=== PATIENT | female | born 1965 | race Caucasian/White ===

== ENCOUNTER 2019-07-09 10:56 | Outpatient (CLI) | payer MEDICARE, SELFPAY ==
--- NOTE | 2019-07-09 11:14 | XR_ITS ---
WS: [id number] SI JOINTS TECHNIQUE: 3 views of the sacroiliac joints CLINICAL INFORMATION: low back pain, LUMBOSACRAL INTERVERTEDBRAL DISC DISORDER COMPARISON: None. FINDINGS: Mild degenerative arthritis both sacroiliac joints. No significant erosive changes. Mild sclerosis ab out the left sacroiliac joint consistent with sacroiliitis. Normal visualized lower lumbar spine. Partially visualized spinal stimulator. XR/XR sacroiliac [facility] 3V [id number] IMPRESSION: Mild degenerative arthritis both sacroiliac joints with mild left sacroiliitis. No erosive changes.
== END 2019-07-09 10:57 | disposition home or self-care (01) ==
LOC: RADWPI 11:05
PROVIDERS: Family Provider Internal Medicine; PCP Internal Medicine; Visit Provider Specialist
DX: M46.1 Sacroiliitis, not elsewhere classified (principal); M47.898 Other spondylosis, sacral and sacrococcygeal region; M51.9 Unspecified thoracic, thoracolumbar and lumbosacral intervertebral disc disorder; M54.5 Low back pain
CPT/HCPCS: 72202

== ENCOUNTER 2019-07-21 11:18 | Outpatient (CLI) | payer MEDICARE, SELFPAY ==
--- NOTE | 2019-07-21 11:21 | MM_ITS ---
WS: [id number] BILATERAL DIGITAL SCREENING MAMMOGRAPHY WITH CAD CLINICAL INFORMATION: SCREENING HISTORY: Screening mammogram. No current complaints. COMPARISON: TECHNIQUE: Bilateral CC and MLO views. FINDINGS: Scattered fibroglandular densities bilaterally. Again seen is the oval nodule upper inner quadrant ri ght breast measuring 1.4 cm slightly smaller today. This is previously shown to represent a cyst. No suspicious focal mass, asymmetry, calcifications, or architectural distortion. No evidence of maligna [place]cy. MM/[place] [id number] IMPRESSION: BI-RADS: 2-Benign FOLLOW UP: 1 Year Follow-up Recommend return to annual screening mammography.
== END 2019-07-21 11:19 | disposition home or self-care (01) ==
LOC: RADSHAW 11:18
PROVIDERS: Family Provider Internal Medicine; PCP Internal Medicine; Visit Provider Internal Medicine
DX: Z12.31 Encounter for screening mammogram for malignant neoplasm of breast (principal)
CPT/HCPCS: 77067

== ENCOUNTER → 2019-08-04 07:45 | Outpatient (BNVA) | payer MEDICARE, SELFPAY | PROVIDERS: Family Provider Internal Medicine; PCP Internal Medicine; Referring Provider Specialist; Visit Provider Psychiatry & Neurology Neurology | DX: M54.16 Radiculopathy, lumbar region (principal); M54.5 Low back pain; M79.604 Pain in right leg; M79.605 Pain in left leg; F17.210 Nicotine dependence, cigarettes, uncomplicated | CPT/HCPCS: 95886; 95908 ==

== ENCOUNTER → 2019-08-08 12:47 | Outpatient (BNVA) | payer MEDICARE, SELFPAY | PROVIDERS: Family Provider Internal Medicine; PCP Internal Medicine; Visit Provider Nurse Practitioner | DX: M54.9 Dorsalgia, unspecified (principal); F17.210 Nicotine dependence, cigarettes, uncomplicated; Z79.891 Long term (current) use of opiate analgesic; Z71.6 Tobacco abuse counseling | CPT/HCPCS: 99214 ==

== ENCOUNTER 2019-10-23 11:28 | Observation (INO) | payer MEDICARE, SELFPAY ==
[2019-10-22 14:21] VITALS: BMI 41.7
[2019-10-23 09:19] VITALS: BP 153/89; PULSE 77; RESP 18; TEMP 36.1; O2SAT 97
--- NOTE | 2019-10-23 09:39 | ANES.PREANE2 ---
Pre-Anesthetic Assessment Pre-Anesthetic Assessment: Height/Weight: Height 1.63 m Weight 110.223 kg Temp Pulse Resp BP Pulse Ox 97 F L 77 18 153/89 97 10/23/19 09:19 10/23/19 09:19 10/23/19 09:19 10/23/19 09:19 10/23/19 09:19 Proposed Procedure: Operation Date: 10/23/19 10:25 Proposed Procedures p Dorsal Column Stimulator Revision 22390 M51.16(Not Applicable) - Emory Macedo MD Was Beta Romeo taken within 24 hours: N/A Social: Social History: Tobacco Exam: Pre-Anes Outpt Exam: alert, oriented x 3, clear to auscultation bilaterally and regular rate & rhythm Airway: Submandibular: WNL Cervical ROM: WNL MP: 2 Dentition: False History/ROS: No significant history except as noted Pulmonary: Pulmonary: COPD CV/HEM: CV/HEM: HTN : : None reported Hepatic: Hepatic: None reported GI: GI: None reported Metabolic: Metabolic: None reported Musc/skel: Musc/skel: Lower Back Pain and OA/DJD Anesthetic Plan: ASA status: 3 Anesthesia: Anesthesia Evaluation and General Risk of > 500 ml blood loss (7ml/kg in children): No PFSH Anesthesia PFSH: Social History Smoking and tobacco status: current every day smoker cigarettes Packs smoked per day: 1 [ Other cigarette details: 1 pck and 1/2 ] Alcohol intake: current Alcohol intake frequency: holidays/special occasions only Alcohol type: wine Lives independently: Yes Household members: spouse Marital status: Current occupational status: disabled Current occupation: disabled History of recent travel: No Female Reproductive History: Date of last menstrual period: 10/31/00 Data Anesthesia Cardiac Studies: No Data to Display
[2019-10-23] MEDS: sodium chloride 0.9% 1,000 ML 30 ML IV (10:00)
--- NOTE | 2019-10-23 10:11 | W.PM.OPSUD ---
Surgery/Procedure H&P Update DATE OF PROCEDURE: October 23, 2019 DATE H&P PERFORMED: 10/21/19 H&P UPDATE INFORMATION: I have reviewed H&P completed within last 30 days and H&P is in [facility] EMR on date indicated PREOP DIAGNOSIS: Spinal stimulator dysfunction PRIMARY INDICATION FOR PROCEDURE: Pain PLANNED PROCEDURE: Operation Date: 10/23/19 10:25 Proposed Procedures Spinal Cord Stimulator Pulse generator replacement 03109 M51.16(Not Applicable) - Emory Macedo MD
--- NOTE | 2019-10-23 10:32 | PM.OP2 ---
 Brief Operative Note: Date of procedure: 10/23/19 Pre-op diagnosis: Spinal cord stimulator dysfunction Post-op diagnosis: same Procedure Done: Replacement of subcutaneous programmable pulse generator Surgeon: Emory Macedo Estimated blood loss (mL): 5 Complications: None Post-op Plan: Home per Ambulatory Surgery protocol. Condition: stable Disposition: PACU Coding Level of Care Code Acute Tour Bus Driver/Guide for Xuan Hamlin
[2019-10-23 11:32] VITALS: BP 116/81; PULSE 100; RESP 14; TEMP 36.6; O2SAT 100
[2019-10-23 11:35] VITALS: BP 110/81; PULSE 93; RESP 22; O2SAT 100
[2019-10-23 11:45] VITALS: BP 110/72; PULSE 81; RESP 14; TEMP 36.6; O2SAT 98
[2019-10-23 12:00] VITALS: BP 134/79; PULSE 73; RESP 18; TEMP 36.7; O2SAT 98
[2019-10-23 12:21] VITALS: BP 138/84; PULSE 74; RESP 18
--- NOTE | 2019-10-23 15:01 | P.OP_ITS ---
Operative Report Date of procedure: October 23, 2019 Pre-op Diagnosis: Spinal stimulator dysfunction Post-op diagnosis: same Procedure Done: Replacement of subcutaneous programmable pulse generator, with connection to intraspinal/epidural electrode arrays. Implants: [employer] Proclaim XR 5 pulse generator Specimens removed/disposition: [employer] Protege pulse generator Pathology: Pulse generator to pathology for gross exam only Surgeon: Emory Macedo Anesthesia: General Estimated blood loss (mL): 5 IV fluids (mL): 500 Complications: None Condition: stable Disposition: PACU Brief History: The patient is a 53-year-old female with chronic/intractable pain. She unde rwent a percutaneous trial of thoracic spinal cord stimulation, with marked improvement in chronic pain complaints obtained during the trial. She subsequently underwent thoracic laminotomy with placement of a paddle lead and a subcutaneous pulse generator (09/27/2013). She developed loss of efficacy of the device in 2014, related primarily to inability to recharge the pulse generator. Replacement of the device was desired by the patient, and approval was recently obtained. After review of the diagnostic and treatment options with the risks/potential benefits/rationale for each, the patient requested to proceed with replacement of the subcutaneous programmable pulse generator and reinitiation of chronic spinal cord stimulation therapy. Placement of a primary cell device was planned, to eliminate the potential for issues with device recharging. Procedure: After routine preoperative evaluation and informed consent were obtained, the patient was taken to the Operating Room. Anesthesia personnel felt the surgical risk would be lower with general anesthesia, which was initiated under their direction. The patient was rotated into the prone position on the operating table. Chest and pelvic bolsters were positioned to ensure the abdomen was decompressed. All pressure points were padded. The prior right flank pulse generator placement incision was marked with a skin marker. The posterior thorax/right flank areas were scrubbed with Betadine and prepped with DuraPrep. Sterile towels and drapes were applied, and an Ioban surgical barrier was placed. The right flank incision site was prepared by infiltration with 1% Xylocaine with epinephrine. An incision was then made, and carried down into the subcutaneous space. Care was taken to avoid injury to the implanted device components. The previously implanted pulse generator was delivered from the subcutaneous space. Setscrews were released, and the lead tails were delivered from the ports on the device. The explanted device was sent to pathology for gross exam. Lead tails were advanced into the ports on the device for implant. Setscrews were tightened with the torque wrench. The lead tail/pulse generator interface was manipulated and found to be secure. An impedance check demonstrated no lead faults. The right flank subcutaneous pocket was copiously irrigated with antibiotic irrigation. Hemostasis was ensured with bipolar electrocautery. The pulse generator was placed within the right flank subcutaneous pocket, with excess lead coiled deep/adjacent to the device. The pulse generator was anchored to the superficial fascia with a single Silk suture. The site was again irrigated with antibiotic irrigation. Wound closure was performed in multiple layers with 2-0 Vicryl Plus simple interrupted closure of the dermis. Final skin closure was performed with 3-0 Vicryl Plus in a running subcuticular pattern. Steri-Strips were applied, and a sterile dressing was placed. The patient was then rotated onto the Recovery Room cart in the supine position, and extubated by Anesthesia personnel. She tolerated the procedure well. All sponge, needle and instrument counts were correct at the completion of the procedure.
== END 2019-10-23 12:50 | disposition home or self-care (01) ==
LOC: MEDSURG 11:43
PROVIDERS: Admitting Provider Specialist; Family Provider Internal Medicine; PCP Internal Medicine; Visit Provider Specialist
PROC: (CPT 63688; principal; 2019-10-23 10:25)
DX: T85.192A Other mechanical complication of implanted electronic neurostimulator of spinal cord electrode (lead), initial encounter (principal); Z79.891 Long term (current) use of opiate analgesic; E66.01 Morbid (severe) obesity due to excess calories; Z68.41 Body mass index [BMI] 40.0-44.9, adult; F17.210 Nicotine dependence, cigarettes, uncomplicated; Z82.49 Family history of ischemic heart disease and other diseases of the circulatory system; J44.9 Chronic obstructive pulmonary disease, unspecified; M19.90 Unspecified osteoarthritis, unspecified site
CPT/HCPCS: 63688; 12345; 88300; 96361; 96365; C1767; G0378; J0330; J0690; J1100; J2001; J2405; J2704; J3010; J3370; J3490; J7030; J7050

== ENCOUNTER → 2019-12-03 12:58 | Outpatient (BNVA) | payer MEDICARE, SELFPAY | PROVIDERS: Family Provider Internal Medicine; PCP Internal Medicine; Visit Provider Nurse Practitioner | DX: G89.29 Other chronic pain (principal); M54.5 Low back pain; M54.2 Cervicalgia; F17.210 Nicotine dependence, cigarettes, uncomplicated; Z79.891 Long term (current) use of opiate analgesic; Z71.6 Tobacco abuse counseling | CPT/HCPCS: 99214 ==

== ENCOUNTER 2020-01-28 06:00 | Outpatient (RCR) | payer MEDICARE, SELFPAY | END 2020-02-16 23:59 | disposition home or self-care (01) | LOC: TPT 06:00 | PROVIDERS: PCP Internal Medicine; Referring Provider Podiatrist Foot & Ankle Surgery; Visit Provider Podiatrist Foot & Ankle Surgery | DX: M72.2 Plantar fascial fibromatosis (principal) | CPT/HCPCS: 97110; 97161 ==

== ENCOUNTER → 2020-01-29 13:03 | Outpatient (BNVA) | payer MEDICARE, SELFPAY | PROVIDERS: Family Provider Internal Medicine; PCP Internal Medicine; Visit Provider Nurse Practitioner | DX: G89.29 Other chronic pain (principal); M47.816 Spondylosis without myelopathy or radiculopathy, lumbar region; M54.2 Cervicalgia; F17.210 Nicotine dependence, cigarettes, uncomplicated; Z96.89 Presence of other specified functional implants; Z79.891 Long term (current) use of opiate analgesic; Z71.6 Tobacco abuse counseling | CPT/HCPCS: 99213; 99214 ==

== ENCOUNTER → 2020-04-09 12:54 | Outpatient (BNVA) | payer MEDICARE, SELFPAY | PROVIDERS: PCP Internal Medicine; Visit Provider Anesthesiology | DX: G89.29 Other chronic pain (principal); M51.16 Intervertebral disc disorders with radiculopathy, lumbar region; M47.816 Spondylosis without myelopathy or radiculopathy, lumbar region; M54.2 Cervicalgia; F17.210 Nicotine dependence, cigarettes, uncomplicated; Z79.891 Long term (current) use of opiate analgesic | CPT/HCPCS: 99213; 99214 ==

== ENCOUNTER → 2020-06-15 12:49 | Outpatient (BNVA) | payer MEDICARE, SELFPAY | PROVIDERS: PCP Internal Medicine; Visit Provider Anesthesiology | DX: M54.5 Low back pain (principal); G89.29 Other chronic pain; M47.816 Spondylosis without myelopathy or radiculopathy, lumbar region; F17.210 Nicotine dependence, cigarettes, uncomplicated; M51.16 Intervertebral disc disorders with radiculopathy, lumbar region; Z79.891 Long term (current) use of opiate analgesic | CPT/HCPCS: 99214 ==

== ENCOUNTER → 2020-08-10 13:21 | Outpatient (BNVA) | payer MEDICARE, SELFPAY | PROVIDERS: PCP Internal Medicine; Visit Provider Anesthesiology | DX: G89.29 Other chronic pain (principal); M54.2 Cervicalgia; M47.816 Spondylosis without myelopathy or radiculopathy, lumbar region; M51.16 Intervertebral disc disorders with radiculopathy, lumbar region; F17.210 Nicotine dependence, cigarettes, uncomplicated; Z79.891 Long term (current) use of opiate analgesic | CPT/HCPCS: 99213 ==

== ENCOUNTER → 2020-10-12 12:53 | Outpatient (BNVA) | payer MEDICARE, SELFPAY | PROVIDERS: PCP Internal Medicine; Visit Provider Anesthesiology | DX: G89.29 Other chronic pain (principal); M51.16 Intervertebral disc disorders with radiculopathy, lumbar region; M47.816 Spondylosis without myelopathy or radiculopathy, lumbar region; M54.2 Cervicalgia; M19.90 Unspecified osteoarthritis, unspecified site; F17.210 Nicotine dependence, cigarettes, uncomplicated; Z79.891 Long term (current) use of opiate analgesic | CPT/HCPCS: 99213 ==

== ENCOUNTER → 2020-12-10 11:32 | Outpatient (BNVA) | payer MEDICARE, SELFPAY | PROVIDERS: PCP Internal Medicine; Visit Provider Nurse Practitioner | DX: G89.29 Other chronic pain (principal); M51.16 Intervertebral disc disorders with radiculopathy, lumbar region; M47.818 Spondylosis without myelopathy or radiculopathy, sacral and sacrococcygeal region; M47.816 Spondylosis without myelopathy or radiculopathy, lumbar region; M54.2 Cervicalgia; M19.90 Unspecified osteoarthritis, unspecified site; R53.82 Chronic fatigue, unspecified; Z96.89 Presence of other specified functional implants; F17.210 Nicotine dependence, cigarettes, uncomplicated; Z79.891 Long term (current) use of opiate analgesic; Z71.6 Tobacco abuse counseling | CPT/HCPCS: 99213; 99214 ==

== ENCOUNTER → 2021-02-11 12:51 | Outpatient (BNVA) | payer MEDICARE, SELFPAY | PROVIDERS: PCP Internal Medicine; Visit Provider Nurse Practitioner | DX: G89.29 Other chronic pain (principal); M51.16 Intervertebral disc disorders with radiculopathy, lumbar region; M47.816 Spondylosis without myelopathy or radiculopathy, lumbar region; M47.818 Spondylosis without myelopathy or radiculopathy, sacral and sacrococcygeal region; M19.90 Unspecified osteoarthritis, unspecified site; F17.210 Nicotine dependence, cigarettes, uncomplicated; Z96.89 Presence of other specified functional implants; Z79.891 Long term (current) use of opiate analgesic; Z71.6 Tobacco abuse counseling | CPT/HCPCS: 99213; 99214 ==

== ENCOUNTER → 2021-04-07 14:17 | Outpatient (BNVA) | payer MEDICARE, SELFPAY | PROVIDERS: PCP Internal Medicine; Visit Provider Anesthesiology | DX: G89.29 Other chronic pain (principal); M47.816 Spondylosis without myelopathy or radiculopathy, lumbar region; M51.16 Intervertebral disc disorders with radiculopathy, lumbar region; M54.2 Cervicalgia; F17.210 Nicotine dependence, cigarettes, uncomplicated; Z79.891 Long term (current) use of opiate analgesic; Z71.6 Tobacco abuse counseling | CPT/HCPCS: 99213; 99214 ==

== ENCOUNTER → 2021-06-08 12:47 | Outpatient (BNVA) | payer MEDICARE, SELFPAY | PROVIDERS: PCP Internal Medicine; Visit Provider Anesthesiology | DX: G89.29 Other chronic pain (principal); M47.816 Spondylosis without myelopathy or radiculopathy, lumbar region; M51.16 Intervertebral disc disorders with radiculopathy, lumbar region; M54.2 Cervicalgia; F17.210 Nicotine dependence, cigarettes, uncomplicated; Z79.891 Long term (current) use of opiate analgesic | CPT/HCPCS: 99213 ==

== ENCOUNTER → 2022-01-26 14:56 | Outpatient (BNVA) | payer MEDICARE, SELFPAY | PROVIDERS: PCP Internal Medicine; Visit Provider Internal Medicine | DX: R20.8 Other disturbances of skin sensation (principal) | CPT/HCPCS: 80053; 82607; 82746; 83036; 84443; 85025 ==

== ENCOUNTER → 2022-03-08 14:43 | Outpatient (BNVA) | payer MEDICARE, SELFPAY | PROVIDERS: PCP Internal Medicine; Visit Provider Podiatrist Foot & Ankle Surgery | DX: M72.2 Plantar fascial fibromatosis (principal) | CPT/HCPCS: 20550; 73630; J1100; J3301; J3490 ==

== ENCOUNTER → 2022-04-17 14:10 | Outpatient (BNVA) | payer MEDICARE, SELFPAY | PROVIDERS: PCP Internal Medicine; Visit Provider Podiatrist Foot & Ankle Surgery | DX: M72.2 Plantar fascial fibromatosis (principal); L60.3 Nail dystrophy | CPT/HCPCS: 99213 ==

== ENCOUNTER → 2022-05-29 09:30 | Outpatient (BNVA) | payer MEDICARE, SELFPAY | PROVIDERS: PCP Internal Medicine; Visit Provider Podiatrist Foot & Ankle Surgery | DX: L60.3 Nail dystrophy (principal); B35.3 Tinea pedis; M72.2 Plantar fascial fibromatosis; B35.1 Tinea unguium | CPT/HCPCS: 36415; 80053; 99213 ==

== ENCOUNTER → 2022-08-28 15:06 | Outpatient (BNVA) | payer MEDICARE, SELFPAY | PROVIDERS: PCP Internal Medicine; Visit Provider Podiatrist Foot & Ankle Surgery | DX: M72.2 Plantar fascial fibromatosis (principal); B35.3 Tinea pedis; L60.3 Nail dystrophy; B35.1 Tinea unguium | CPT/HCPCS: 99213 ==

== ENCOUNTER 2022-11-01 12:51 | Outpatient (CLI) | payer MEDICARE, SELFPAY ==
--- NOTE | 2022-11-01 13:16 | MM_ITS ---
WS: [id number] BILATERAL 3D TOMOSYNTHESIS DIGITAL SCREENING MAMMOGRAPHY WITH CAD CLINICAL INFORMATION: SCREENING HISTORY: Screening mammogram. No current complaints. COMPARISON: 2020 TECHNIQUE: Bilateral CC and MLO views. FINDINGS: Scattered fibroglandular densities bilaterally. Stable ovoid nodule upper-inner quadrant RIGHT breast measuring 1.4 cm unchanged. Previously shown to represent a cyst. No suspicious focal mass, asymmetr y, calcifications, or architectural distortion. No evidence of malignancy. Incidental punctate calcif ications. MM/[place] [id number] IMPRESSION: BI-RADS: 2-Benign FOLLOW UP: 1 Year Follow-up Recommend return to annual screening mammography.
== END 2022-11-01 12:52 | disposition home or self-care (01) ==
PROVIDERS: PCP Internal Medicine; Visit Provider Internal Medicine
DX: Z12.31 Encounter for screening mammogram for malignant neoplasm of breast (principal)
CPT/HCPCS: 77063; 77067

== ENCOUNTER → 2022-12-25 15:21 | Outpatient (BNVA) | payer MEDICARE, SELFPAY | PROVIDERS: PCP Internal Medicine; Visit Provider Podiatrist Foot & Ankle Surgery | DX: L60.8 Other nail disorders (principal); B35.1 Tinea unguium | CPT/HCPCS: 99213 ==

== ENCOUNTER 2023-05-25 13:14 | Outpatient (CLI) | payer MEDICARE, SELFPAY ==
--- NOTE | 2023-05-25 13:33 | XR_ITS ---
WS: [id number] AP and lateral both knees, 05/25/2023 Clinical Data: PAIN IN R KNEE Comparison: AP and lateral both knees, 02/01/2011 Findings: Right knee: The medial and lateral joint spaces are minimally narrowed. The posterior right patella is unremarkab le. There are no fractures or dislocations. The soft tissues are normal. Left knee: There is minimal medial joint compartment narrowing. The posterior left patella shows a posterior sup erior spur. There are no fractures or dislocations. The soft tissues are normal. Impression: Minimal joint space narrowing of both knees. Kellgren-Mj Classification: grade 1 (doubtful): doubtful joint space narrowing and possible ost eophytic lipping of both knees.
== END 2023-05-25 13:15 | disposition home or self-care (01) ==
LOC: RAD 13:17
PROVIDERS: PCP Internal Medicine; Visit Provider Internal Medicine
DX: M25.561 Pain in right knee (principal)
CPT/HCPCS: 73565

== ENCOUNTER → 2023-07-12 14:14 | Outpatient (BNVA) | payer MEDICARE, SELFPAY | PROVIDERS: PCP Family Medicine; Referring Provider Family Medicine; Visit Provider Nurse Practitioner | DX: M17.0 Bilateral primary osteoarthritis of knee (principal); Z46.89 Encounter for fitting and adjustment of other specified devices; M25.562 Pain in left knee | CPT/HCPCS: 73560; 97760; 99204; L1812 ==

== ENCOUNTER 2023-07-12 16:03 | Outpatient (CLI) | payer MEDICARE, SELFPAY | END 2023-07-12 16:04 | disposition home or self-care (01) | LOC: SPT 16:04 | PROVIDERS: PCP Family Medicine; Visit Provider Nurse Practitioner | DX: Z46.89 Encounter for fitting and adjustment of other specified devices (principal); M25.562 Pain in left knee; M17.0 Bilateral primary osteoarthritis of knee | CPT/HCPCS: 97760; 99204; L1812 ==

== ENCOUNTER → 2023-07-20 14:05 | Outpatient (BNVA) | payer MEDICARE, SELFPAY | PROVIDERS: PCP Family Medicine; Visit Provider Family Medicine | DX: Z13.6 Encounter for screening for cardiovascular disorders (principal) | CPT/HCPCS: 80053; 80061; 85025 ==

== ENCOUNTER → 2023-08-15 13:42 | Outpatient (BNVA) | payer MEDICARE, SELFPAY | PROVIDERS: PCP Family Medicine; Visit Provider Nurse Practitioner | DX: M17.0 Bilateral primary osteoarthritis of knee (principal) | CPT/HCPCS: 20610 ==

== ENCOUNTER → 2023-11-16 10:44 | Outpatient (BNVA) | payer MEDICARE, SELFPAY | PROVIDERS: PCP Family Medicine; Visit Provider Specialist | DX: M17.0 Bilateral primary osteoarthritis of knee (principal) | CPT/HCPCS: 20610; J1100; J2795; J3301 ==

== ENCOUNTER → 2024-03-07 10:45 | Outpatient (BNVA) | payer MEDICARE, SELFPAY | PROVIDERS: PCP Family Medicine Adult Medicine; Visit Provider Specialist | DX: M17.0 Bilateral primary osteoarthritis of knee (principal) | CPT/HCPCS: 20610; J1100; J2795; J3301 ==

== ENCOUNTER 2024-09-10 14:02 | Outpatient (CLI) | payer MEDICARE, SELFPAY ==
--- NOTE | 2024-09-10 14:14 | XR_ITS ---
WS: [id number] Exam: XR lumbar spine min 4V [id number] Date/Time of Exam: 09/10/2024 2:18 PM Reason For Exam: PRESENCE OF NEUROSTIM/LS RADICULOPATHY/TSPINE BACK PAIN Comparison 04/08/2019. No fracture or malalignment. Degenerative change at the L1-2 disc space. Mild spondylosis. Posterior elements are intact. Neurostimulator leads extend into the lower thoracic spinal canal. XR/XR lumbar spine min 4V [id number] IMPRESSION: 1. Degenerative narrowing of the L1-2 disc with associated endplate changes of L1 and L2. Mild spondylosis of all lumbar vertebra. 2. No fracture or malalignment.
--- NOTE | 2024-09-10 14:14 | XR_ITS ---
WS: [id number] Exam: XR thoracic spine 2V [id number] Date/Time of Exam: 09/10/2024 2:18 PM Reason For Exam: PRESENCE OF NEUROSTIM/LS RADIULOPATHY/TSPINE BACK PAIN No fracture or malalignment. Spondylosis of the mid and lower thoracic vertebra. Neurostimulator electrodes in the lower thoracic spinal canal. Normal paraspinal soft tissues. Very slight thoracolumbar scoliosis with LEFT convexity. XR/XR thoracic spine 2V [id number] IMPRESSION: 1. Spondylosis and slight scoliosis. 2. No fracture or malalignment. Neurostimulator leads in place in the lower tho racic spinal canal.
== END 2024-09-10 14:03 | disposition home or self-care (01) ==
PROVIDERS: PCP General Practice; Visit Provider General Practice
DX: M47.894 Other spondylosis, thoracic region (principal); M54.17 Radiculopathy, lumbosacral region; Z96.82 Presence of neurostimulator; M51.369 Other intervertebral disc degeneration, lumbar region without mention of lumbar back pain or lower extremity pain; M47.896 Other spondylosis, lumbar region
CPT/HCPCS: 72070; 72110

== ENCOUNTER 2024-10-10 14:14 | Outpatient (CLI) | payer MEDICARE, SELFPAY ==
--- NOTE | 2024-10-10 | MM_ITS ---
WS: [id number] BILATERAL 3D TOMOSYNTHESIS DIGITAL SCREENING MAMMOGRAPHY WITH CAD CLINICAL INFORMATION: ANNUAL SCREENING HISTORY: Screening mammogram. No current complaints. COMPARISON: 2022 TECHNIQUE: Bilateral CC and MLO views. FINDINGS: Scattered fibroglandular densities bilaterally. No suspicious focal mass, asymmetry, calcifications, or architectural distortion. No evidence of malignancy. Stable ovoid nodule inner quadrant RIGHT breast. Incidental punctate calcifications. MM/MM scr tomosynthesis [id number] IMPRESSION: DENSITY: There are scattered areas of fibroglandular density. BI-RADS: 2 - Benign. FOLLOW UP: 1 Year Follow-up Recommend return to annual screening mammography.
== END 2024-10-10 14:15 | disposition home or self-care (01) ==
LOC: RAD 14:16
PROVIDERS: PCP General Practice; Visit Provider Internal Medicine
DX: Z12.31 Encounter for screening mammogram for malignant neoplasm of breast (principal); R92.323 Mammographic fibroglandular density, bilateral breasts; N63.20 Unspecified lump in the left breast, unspecified quadrant; R92.1 Mammographic calcification found on diagnostic imaging of breast
CPT/HCPCS: 77063; 77067